=== PATIENT | female | born 1960 | race Caucasian/White ===

== ENCOUNTER → 2024-12-12 | Outpatient (CLI) | payer MEDICARE, SELFPAY ==
--- NOTE | 2024-12-12 10:33 | XR_ITS ---
Examination: Bilateral hips, AP pelvis, 5 views Technique: AP, lateral views both hips, AP pelvis, 5 views Exam date and time: December 12, 2024 1057 hours INDICATIONS: Bilateral hip pain beginning several years ago. FINDINGS: Moderate right moderate to advanced left hip osteoarthritis Prominent osteopenia No hip or pelvic fractures IMPRESSION: Moderate right hip osteoarthritis Moderate to advanced left hip osteoarthritis
== END | disposition home or self-care (01) ==
PROVIDERS: Referring Provider Nurse Practitioner; Visit Provider Nurse Practitioner
DX: M16.0 Bilateral primary osteoarthritis of hip (principal)
CPT/HCPCS: 73523

== ENCOUNTER 2025-04-05 17:16 | Emergency (ER) | payer MEDICARE, SELFPAY ==
--- NOTE | 2025-04-05 17:52 | EKG_ITS ---
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
[2025-04-05 17:57] VITALS: BP 110/75; PULSE 74; RESP 20; TEMP 36.6; O2SAT 95; BMI 28.2
--- NOTE | 2025-04-05 18:03 | XR_ITS ---
Examination: AP chest single view TECHNIQUE: AP portable upright chest single view. Date and time: April 05, 2025, 1836 hours, comparison August 26, 2015 INDICATIONS: Chest pain today. FINDINGS: Normal heart size. Prominent accentuation of bronchovascular markings. No pulmonary edema. No lumbar pneumonia. Moderate osteopenia IMPRESSION: Bronchitis pattern
--- NOTE | 2025-04-05 18:04 | PD.EDRME ---
Rapid Medical Screening Exam [facility] Arrival date/time: 04/05/25 17:16 64-year-old female presents to the emergency department day for complaint of shortness of breath abdominal pain generalized fatigue Chief Complaint: Weakness Vital signs: Vital Signs Temperature 97.9 F 04/05/25 17:57 Pulse Rate 74 04/05/25 17:57 Respiratory Rate 20 04/05/25 17:57 Blood Pressure 110/75 04/05/25 17:57 Pulse Oximetry (%) 95 04/05/25 17:57 Oxygen Delivery Method Room Air 04/05/25 17:57
[2025-04-05 18:29] LABS: Basophils # (Auto) 0.2 Thou/mm3 (0.0-0.2); Basophils % (Auto) 2 % (0-2.5); Eosinophils # (Auto) 0.3 Thou/mm3 (0.0-0.5); Eosinophils % (Auto) 2 % (0-10); Hematocrit 41.3 % (36.0-46.0); Hemoglobin 13.4 g/dL (12.0-16.0); Immature Granulocytes Auto 0.07 Thou/mm3 (0.00-0.00); Lymphocytes # (Auto) 2.4 Thou/mm3 (1.0-4.8); Lymphocytes % (Auto) 18 % (10-50); Mean Corpuscular HGB Conc 32.4 g/dl (31.0-37.0); Mean Corpuscular Hemoglobin 28.4 pg (25.0-35.0); Mean Corpuscular Volume 88 fL (80-100); Monocytes # (Auto) 1.3 Thou/mm3 (0.0-0.8); Monocytes % (Auto) 9 % (0-12); Neutrophils # (Auto) 9.2 Thou/mm3 (1.8-7.7); Neutrophils % (Auto) 69 % (37-80); Nucleated Red Blood Cell # 0.00 Thou/mm3 (0.00-0.00); Nucleated Red Blood Cell % 0 /100 WBC (0); Platelet Count 312 Thou/mm3 (140-440); RDW Standard Deviation 47.7 fL (36.4-46.3); Red Blood Count 4.72 Miln/mm3 (4.00-5.20); White Blood Count 13.3 Thou/mm3 (3.6-11.0)
[2025-04-05 18:38] VITALS: BP 109/73; PULSE 81; RESP 18; TEMP 36.6; O2SAT 95
[2025-04-05 18:43] LABS: INR 1.0 (0.9-1.3); Partial Thromboplastin Time 25.0 Seconds (22.0-36.0); Prothrombin Time 10.5 Seconds (9.0-12.2)
[2025-04-05 18:45] LABS: B-Type Natriuretic Peptide < 20 pg/mL (0-100)
[2025-04-05 18:48] LABS: Alanine Aminotransferase 16 U/L (10-49); Albumin, Serum 4.2 gm/dL (3.4-4.8); Albumin/Globulin Ratio 1.7 (1.2-2.2); Alkaline Phosphatase 126 U/L (46-116); Anion Gap 6 (7-16); Aspartate Amino Transferase 16 U/L (0-34); BUN/Creatinine Ratio 14 Ratio (12-20); Bilirubin,Total 0.3 mg/dL (0.3-1.2); Blood Urea Nitrogen 21 mg/dL (9-23); Calcium 9.1 mg/dL (8.3-10.6); Calcium (Corrected) 9.1 mg/dL (8.5-10.1); Carbon Dioxide 27.8 mMol/L (20.0-31.0); Chloride 108 mMol/L (98-107); Creatinine (Component) 1.5 mg/dL (0.6-1.3); Estimated Creatinine Clearance 40.8 mL/min (>60); Globulin 2.5 gm/dL (2.3-3.5); Glucose 120 mg/dL (74-106); Lipase 25 U/L (12-53); Magnesium 1.7 mg/dL (1.6-2.6); Osmolality,Calculated 287 (275-295); Potassium 5.0 mMol/L (3.4-5.1); Sodium 142 mMol/L (136-145); Total Protein 6.7 gm/dL (5.7-8.2); Troponin I < 0.020 ng/mL (0.0-0.045); eGFR 39 See Note
--- NOTE | 2025-04-05 19:21 | PC.NURSE ---
Assumed care of pt. Pt was asleep upon my arrival to room, satting at 89% on RA. Pt awoke when her name was called. C/o weakness, dizziness, SOB. Pt informed of need for UA and provided with bedside commode.
--- NOTE | 2025-04-05 19:33 | PC.NURSE ---
Assumed care of pt. Pt was asleep upon my arrival to room and was satting 89% on RA. Pt awoke when her name was called, c/o abd pain and blood in stool x months , supposed to have colonoscopy outpatient- as well as weakness, malaise. Pt had recent fall which she attributes to weakness, denies hitting head. Pt made aware of need for UA, given bedside commode but she cannot void at this time. 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
[2025-04-05 20:36] LABS: Collection Type, Urine Clean Catch
[2025-04-05 20:45] LABS: Bilirubin,Urine Negative (Negative); Blood,Urine Negative (Negative); Clarity,Urine Clear (Clear/Hazy); Color,Urine Yellow (Lt Yel-Yel); Glucose, Urine Negative (Negative); Hyaline Casts,Urine < 1 /hpf (0-1); Ketones,Urine Negative (Negative); Leukocyte Esterase,Urine Negative (Negative); Nitrite,Urine Negative (Negative); PH,Urine 5.5 (5.0-7.0); Protein,Urine Trace (Neg - Trace); RBC,Urine 10 /hpf (0-3); Specific Gravity,Urine 1.026 (1.001-1.035); Squamous Epithelial Cell,Urine 3 /hpf (0-5); Urobilinogen,Urine Negative mg/dL (0.0-1.0); WBC,Urine 2 /hpf (0-5)
[2025-04-05 21:06] LABS: Amphetamine/Methamp Scrn,U Negative (Negative); Barbiturate Screen,Urine Negative (Negative); Benzodiazepines Screen,Urine Negative (Negative); Benzoylecgonine Screen, Ur Negative (Negative); Fentanyl Screen,Urine Negative (Negative); Opiate Screen,Urine Positive (Negative); THC Screen,Urine Negative (Negative)
[2025-04-05 21:51] VITALS: BP 90/71; PULSE 77; RESP 16; O2SAT 94
--- NOTE | 2025-04-05 21:53 | EDNOTE_ITS ---
ED Weakness RME/HPI General Chief complaint: Weakness Stated complaint: Dizzy , weak, falling, SOB X 1 month Time Seen by Provider: 04/05/25 21:53 Arrival date/time: 04/05/25 17:16 RME / HPI RME / HPI Narrative: 04/05/25 17:16 64-year-old female presents to the emergency department day for complaint of shortness of breath abdominal pain generalized fatigue ------- Dr. Carr?s Main ED Evaluation: 64yo female with a history of HTN, HLD presents to the ED for a chief complaint of diffuse lower abdominal pain x 1 month. Patient recently finished antibiotics for a UTI, stating her urinary irritative symptoms have resolved, but still has persistent lower abdominal pain. No fever or chills. She has had several emetic episodes over the last few days. She notes having dark stools of chronic intermittent nature. Related Data Home Medications ?Medication ?Instructions ?Recorded ?Confirmed Multivitamins * (CENTRUM *) 1 tab PO QDAY #0 tabs 07/3009/23/18 Oxycodone Hcl * (ROXICODONE *) 30 mg PO Q4HR PRN PAIN #0 tabs 08/26/15 09/23/18 SENNOSIDES/DOCUSATE SODIUM (STOOL 1 tab PO BID ##0 09/23/18 SOFTENER TABLET) folic acid 1 mg tablet 1 mg PO QDAY #0 tabs 5 09/23/18 gabapentin 800 mg tablet 800 mg PO TID #0 tabs 09/23/18 methotrexate sodium 5 mg tablet 2.5 mg PO UD #0 tabs 1 10/26/14 09/23/18 (Trexall) metoprolol succinate 100 mg 100 mg PO QDAY ##0 5 09/23/18 tablet,extended release 24 hr (Toprol XL) omeprazole 40 mg capsule,delayed 40 mg PO QDAY ##0 09/23/18 release (Prilosec) spironolactone 50 mg tablet 50 mg PO QDAY #0 tabs 07/3009/23/18 (Aldactone) torsemide 20 mg tablet (Demadex) 20 mg PO QDAY #0 tabs 08/26/15 09/23/18 tramadol 50 mg tablet (Ultram) 50 mg PO Q4HR PRN PAIN #0 tabs 08/26/15 09/23/18 Previous Rx's ?Medication ?Instructions ?Recorded Hydrocodone/Acetaminophen * (NORCO 1 tab PO Q6H PRN pa in #5 tabs 02/09/17 5/325 *) ondansetron 4 mg disintegrating 4 mg PO Q6H #14 tabs 1 tablet rivaroxaban 15 mg (42)-20 mg (9) See Rx Instructions P O .COMPLEX 03/26/21 tablets in a starter pack (Xarelto #51 tabs DVT-PE Treatment 30-Day Starter) acetaminophen 300 mg-codeine 30 mg 1 tab PO BID PRN pa in #10 tabs 06/15/22 tablet ciprofloxacin HCl 500 mg tablet 500 mg PO BID #14 tabs 06/15/22 ondansetron 4 mg disintegrating 4 mg PO Q8H #10 tabs 0 06/15/22 tablet hyoscyamine sulfate 0.125 mg 0.125 mg PO TID PRN cram ping #10 04/06/25 tablet (Levsin) tabs lactulose 10 gram/15 mL oral 20 g (30 mL) PO BID #237 mL 04/06/25 solution Allergies Allergy/AdvReac Type Severity Reaction Status Date / Time Sulfa (Sulfonamide Allergy Unknown HIVES Verified 04/05/25 17:21 Antibiotics) Review of Systems Review of Systems Systems Reviewed: All systems reviewed, normal except as documented Past Medical History Past Medical History NEUROLOGIC: Negative Seizures CARDIAC: Positive Cardiac Disorders, Deep Vein Thrombosis (03/26/21) and Hypertension; Negative Congestive Heart Failure RESPIRATORY: Positive Chronic Obstructive Pulmonary Disease (COPD), Asthma, Emphysema and Pneumonia; Negative Tuberculosis GENITOURINARY: Negative Renal Disease ENDOCRINE: Negative Diabetes Mellitus Type 1 or Diabetes Mellitus Type 2 HEMATOLOGIC: Negative Sickle Cell Disease OTHER HISTORY: Negative Blood Transfusions, Blood Transfusion Reaction, Anesthesia Reactions or Cancer Surgical History SURGICAL: Positive Hysterectomy and Section Social History SMOKING STATUS: Current every day smoker 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 HEENT: Normocephalic, atraumatic; pupils equal, round, reactive to light; EOMI; mucous membranes pink, moist; oropharynx clear NECK: Supple LUNGS: CTABL; no wheezes, no rales, no rhonchi HEART: Regular rate, regular rhythm; normal S1, S2; no murmurs ABDOMEN: non distended; normal BS; soft, diffuse tenderness throughout the lower quadrants/suprapubic area, slight guarding, no gross peritoneal findings, no rebound; no masses, no organomegaly, no hernia BACK: no CVA tenderness EXTREMITIES: atraumatic; no edema NEUROLOGIC: awake; alert and oriented x4; cranial nerves II-XII grossly intact; no focal sensory or motor deficits PSYCHIATRIC: appropriate mood and affect SKIN: warm, dry, normal color; no rashes Course Quality Measures none Orders Category Date Time Status Arts Manager NOW Care 04/05/25 18:03 Completed EKG (ED ONLY) *Do not use* NOW Care 04/05/25 17:[address] abdomen pelvis wo con Stat Exams 04/05/25 22:06 Completed EKG (ED Only) Stat Exams 04/05/25 17:52 Draft XR chest 1V Stat Exams 04/05/25 18:03 Completed B-Type Natriuretic Peptide Stat Lab 04/05/25 18:20 Completed CBC Stat Lab 04/05/25 18:20 Completed Comprehensive Metabolic Panel Stat Lab 04/05/25 18:20 Completed Drug Screen,Urine Stat Lab 04/05/25 20:22 Completed Lipase Stat Lab 04/05/25 18:20 Completed Magnesium Stat Lab 04/05/25 18:20 Completed Partial Thromboplastin Time Stat Lab 04/05/25 18:20 Completed Prothrombin Time with INR Stat Lab 04/05/25 18:20 Completed Troponin I Stat Lab 04/05/25 18:20 Completed Urinalysis Stat Lab 04/05/25 20:22 Completed Morphine Inj Med 04/05/25 22:06 Discontinued 2 mg IVP X1 ONE Ondansetron Inj [Zofran Inj] Med 04/05/25 22:06 Discontinued 4 mg IVP X1 ONE Sodium Chloride 0.9% 500 ml [Ns] 500 ml Med 04/06/25 00:37 Discontinued IV 500 mls/hr Vital Signs Vital signs: Vital Signs Temperature 97.9 F 04/05/25 17:57 Pulse Rate 74 04/05/25 17:57 Respiratory Rate 20 04/05/25 17:57 Blood Pressure 110/75 04/05/25 17:57 Pulse Oximetry (%) 95 04/05/25 17:57 Oxygen Delivery Method Room Air 04/05/25 17:57 Weakness MDM Narrative MDM Narrative:: Scribe Attestation: 04/05/25 - Keri Richardson, jeannette scribing for and in the presence of Dr. Carr. 64yo female with a history of HTN, HLD presents to the ED for a chief complaint of diffuse lower abdominal pain x 1 month. Patient recently finished antibiotics for a UTI, stating her urinary irritative symptoms have resolved, but still has persistent lower abdominal pain. Please see PE findings. Lab markers demonstrate WBC 13.3, normal hemoglobin, no thrombocytopenia. CMP demonstrates elevated Creatinine 1.5 with reduced eGFR compared to baseline, Glucose mildly elevated at 120, LFTs normal, UA negative for infection. Special studies i ncluding CT scan without signs of acute intraabdominal inflammation. Patient treated with low dose IV narcotic analgesics and antiemetics with moderate relief. No signs of sepsis. Patient is considered safe for discharge. Will prescribe laxative and antispasmotics. Recommend clear liquid diet for 24 hours and precautionary instructions provided. Diagnoses include chronic abdominal pain and constipation. Patient data External records reviewed:: [facility] previous records (Per chart review, patient was seen here on 06/15/22 for abdominal contusion.) Clinical information provided by:: patient Social determinants that could affect healthcare access:: none Patient has the following chronic illnesses:: COPD, HTN How is presenting disease/condition affected by chronic disease/condition?: uneffected by Evaluation data The following diagnostics were reviewed and interpreted by me:: lab results, radiology exam(s) and EKG tracing(s) Lab and/or radiology exams considered but not ordered:: none Interpretation Summary: EKG done at 1754, NSR, rate of 78, occasional ectopy, J point elevation evident, no pathological ST segment elevation, left axis deviation, normal intervals, according to my interpretation. [place] [facility] Signed Patient: JERRY MCNAIR [facility]. Record#: [id number] Birthdate: 1960 Age/Sex: 64 / F Location: [facility] Attending Dr: Ordering Physician: Benjamín (SENIOR CONTROLS ENGINEER)Ethan NP Date of Service: 04/05/25 Procedure(s): XR chest 1V Accession Number(s): [id number] cc: Benjamín (GOSIA),Ethan ELISE; Edgar Ellington MD; Naresh Chavez MD~ Examination: AP chest single view TECHNIQUE: AP portable upright chest single view. Date and time: April 05, 2025, 1836 hours, comparison August 26, 2015 INDICATIONS: Chest pain today. FINDINGS: Normal heart size. Prominent accentuation of bronchovascular markings. No pulmonary edema. No lumbar pneumonia. Moderate osteopenia IMPRESSION: Bronchitis pattern Dictated By: Naresh Chavez MD Signed By: <Electronically signed by Naresh Chavez MD in OV> 04/05/25 1843 [place] Report Signed Patient: JERRY MCNAIR. Record#: [id number] Birthdate: 1960 Age/Sex: 64 / F Location: [facility] Attending Dr: Ordering Physician: Quintin Mallory DO Date of Service: 04/05/25 Procedure(s): CT abdomen pelvis wo con Accession Number(s): [id number] cc: Quintin Mallory DO; Edgar Ellington MD; Naresh Chavez MD~ Examination: CT abdomen and pelvis without contrast. Coronal 3-D reconstructions. Sagittal 2-D reconstructions. Date and time of exam:April 05, 2025 10:19 PM Comparison 06/15/2022 INDICATIONS: Lower abdominal pain beginning one month ago CTDI: vol (mGy): 9.81 DLP: (mGycm): 589 Technique: Axial images of the abdomen have been obtained, 3 mm slice thickness Intravenous contrast material has not been administered. Low dose protocols were performed. One or more of the following dose reduction techniques were used; automated exposure control, adjustment of the mA and/or KV according to patient size, use of iterative reconstruction technique. Findings: Right middle lobe minor atelectasis No focal liver or splenic lesions No gallstones No pancreatic or adrenal mass Upper pole 6.5 cm left renal cyst, complex with calcification Moderate renal parenchymal scar formation Aortic calcification no aneurysmal dilatation No bowel obstruction No pericecal inflammatory change Colonic diverticulosis, no diverticulitis Absent uterus No adnexal mass Urinary bladder intact Prominent osteopenia IMPRESSION: Moderate renal parenchymal scar formation 6.5 cm complex upper pole left renal cyst No CT findings of appendicitis or bowel obstruction No diverticulitis No nonspecific colitis or enteritis pattern noted on this noncontrast study Dictated By: Naresh Chavez MD Signed By: <Electronically signed by Naresh Chavez MD in OV> 04/05/25 2236 Medications / Prescriptions Medications or Prescriptions considered but not ordered:: none Medication administrations:: Medication Administration History Discontinued Medications Sodium Chloride (Ns) 500 mls @ 500 mls/hr IV .Q1H ONE Stop: 04/06/25 01:36 Morphine Sulfate (Morphine Sulf Inj 10 Mg/Ml Vial) 2 mg IVP X1 ONE Stop: 04/05/25 22:07 Last Admin: 04/05/25 23:02 Dose: 2 mg Documented By: MARLY Ondansetron HCl (Ondansetron Inj 2 Mg/Ml Inj 2 Ml) 4 mg IVP X1 ONE; Protocol Stop: 04/05/25 22:07 Last Admin: 04/05/25 22:56 Dose: 4 mg Documented By: MARLY see above, if any Consultations Consultation(s) initiated? (list below): No Diagnosis Weakness Differential Diagnosis: dehydration and other (constipation, UTI) Most likely diagnosis given after review of the tests above:: see clinical impression below Admission Indicated Admission indicated?: not indicated Admission Request Was there a request for admission?: No Disposition Plan Disposition Plan: Discharge Discharge Attestation Discharge Attestation: The patient and all family members were given an opportunity to ask questions and understood the discharge instructions. Discharge instructions specifically effects, indications for sooner follow up or return to the emergency department, and the expected course of current diagnosis. Patient condition: Stable Discharge Plan Plan Patient Disposition: HOME (Self Care) Prescriptions/Referrals Prescriptions/Med Rec: New lactulose 10 gram/15 mL solution 20 g PO BID Qty: 237 0RF Rx Instructions: Take each dose with two 8 ounce glasses of water. hyoscyamine sulfate [Levsin] 0.125 mg tablet 0.125 mg PO TID PRN (Reason: cramping) Qty: 10 0RF No Action torsemide [Demadex] 20 MG tablet 20 mg PO QDAY Qty: 0 metoprolol succinate [Toprol XL] 100 MG tablet extended release 24 hr 100 mg PO QDAY Qty: 0 omeprazole [Prilosec] 40 MG capsule,delayed release(DR/EC) 40 mg PO QDAY Qty: 0 Patient Comments: TO SUPPRESS GASTRIC SECRETIONS tramadol [Ultram] 50 MG tablet 50 mg PO Q4HR PRN (Reason: PAIN) Qty: 0 Patient Comments: FOR PAIN, NOT TO EXCEED 8 TABS IN 24 HRS gabapentin 800 MG tablet 800 mg PO TID Qty: 0 methotrexate sodium [Trexall] 5 MG tablet 2.5 mg PO UD Qty: 0 folic acid 1 MG tablet 1 mg PO QDAY Qty: 0 spironolactone [Aldactone] 50 MG tablet 50 mg PO QDAY Qty: 0 Multivitamins * (CENTRUM *) 1 EACH tablet 1 tab PO QDAY Qty: 0 Oxycodone Hcl * (ROXICODONE *) 30 MG tablet 30 mg PO Q4HR PRN (Reason: PAIN) Qty: 0 SENNOSIDES/DOCUSATE SODIUM (STOOL SOFTENER TABLET) 1 EACH tablet 1 tab PO BID Qty: 0 Hydrocodone/Acetaminophen * (NORCO 5/325 *) 1 TAB tablet 1 tab PO Q6H PRN (Reason: pain) Qty: 5 0RF Xarelto DVT-PE Treat 30d Start 15 mg (42)- 20 mg (9) tablets,dose pack See Rx Instructions .ROUTE .COMPLEX Qty: 51 0RF Rx Instructions: Take one-15 mg tablet twice daily for 21 days, then one-20 mg tablet once daily; must take with meal/food ondansetron 4 mg tablet,disintegrating 4 mg PO Q6H Qty: 14 0RF acetaminophen-codeine 300-30 mg tablet 1 tab PO BID PRN (Reason: pain) Qty: 10 0RF ciprofloxacin HCl 500 mg tablet 500 mg PO BID Qty: 14 0RF ondansetron 4 mg tablet,disintegrating 4 mg PO Q8H Qty: 10 0RF Referrals: Edgar Ellington MD [Primary Care Provider] - In 1 week Problem List Clinical Impression: Abdominal pain, Acute dehydration Patient/Caregiver Discharge Instructions Discharge Activity: activity as tolerated Education Materials: Abdominal Pain, Dehydration Additional Instructions: Drink fluids liberally. Follow-up with primary care doctor in 1 week for repeat serum chemistries. Medication as directed. Return if worsening. Print Language: Nepalese Stand Alone Forms: Tammie Award Info., Patient Portal Info Letter
--- NOTE | 2025-04-05 22:06 | XR_ITS ---
Examination: CT abdomen and pelvis without contrast. Coronal 3-D reconstructions. Sagittal 2-D reconstructions. Date and time of exam:April 05, 2025 10:19 PM Comparison 06/15/2022 INDICATIONS: Lower abdominal pain beginning one month ago CTDI: vol (mGy): 9.81 DLP: (mGycm): 589 Technique: Axial images of the abdomen have been obtained, 3 mm slice thickness Intravenous contrast material has not been administered. Low dose protocols were performed. One or more of the following dose reduction techniques were used; automated exposure control, adjustment of the mA and/or KV according to patient size, use of iterative reconstruction technique. Findings: Right middle lobe minor atelectasis No focal liver or splenic lesions No gallstones No pancreatic or adrenal mass Upper pole 6.5 cm left renal cyst, complex with calcification Moderate renal parenchymal scar formation Aortic calcification no aneurysmal dilatation No bowel obstruction No pericecal inflammatory change Colonic diverticulosis, no diverticulitis Absent uterus No adnexal mass Urinary bladder intact Prominent osteopenia IMPRESSION: Moderate renal parenchymal scar formation 6.5 cm complex upper pole left renal cyst No CT findings of appendicitis or bowel obstruction No diverticulitis No nonspecific colitis or enteritis pattern noted on this noncontrast study
[2025-04-05 22:33] VITALS: BP 111/78; PULSE 80; RESP 17; TEMP 36.8; O2SAT 95
[2025-04-05] MEDS: ONDANSETRON INJ 2 MG/ML INJ 2 ML 4 MG IVP (22:56)
[2025-04-05] MEDS: MORPHINE SULF INJ 10 MG/ML VIAL 2 MG IVP (23:02)
== END 2025-04-06 01:02 | disposition home or self-care (01) ==
PROVIDERS: Nurse Practitioner Primary Care; Emergency Provider Emergency Medicine; PCP Family Medicine
DX: E86.0 Dehydration (principal); E78.5 Hyperlipidemia, unspecified; I10 Essential (primary) hypertension; N28.1 Cyst of kidney, acquired; N28.89 Other specified disorders of kidney and ureter; R06.02 Shortness of breath
CPT/HCPCS: 36415; 71045; 74176; 80053; 80307; 81001; 83690; 83735; 83880; 84484; 85025; 85610; 85730; 93005; 96372; 99284; J2270; J2405